=== PATIENT | male | born 1995 | race Caucasian/White ===

== ENCOUNTER 2016-08-29 12:13 | Emergency (ER) | payer OTHER, BC ==
[~2016-08-29] VITALS: Ht 177.8 cm; Wt 87.0 kg
[2016-08-29 12:20] VITALS: BP 134/83; PULSE 84; RESP 16; TEMP 98.8; O2SAT 97
[2016-08-29] MEDS ORDERED: TETANUS/DIPHTHERIA TOXOID ADULT 0.5 ML VIAL IM ONE (13:00)
[2016-08-29] MEDS ORDERED: IBUP800T23 PO (13:01)
[2016-08-29] MEDS ORDERED: CYCL1TAB29 PO (13:01)
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
== END 2016-08-29 13:27 | disposition home or self-care (01) ==
LOC: PHEFT 12:13
DX: S20.412A Abrasion of left back wall of thorax, initial encounter (principal); S50.812A Abrasion of left forearm, initial encounter; S80.211A Abrasion, right knee, initial encounter; Z87.19 Personal history of other diseases of the digestive system; V59.88XA Occupant (driver) (passenger) of pick-up truck or van injured in other specified transport accidents, initial encounter; Y92.410 Unspecified street and highway as the place of occurrence of the external cause
CPT/HCPCS: 99282